=== PATIENT | female | born 1955 | race Caucasian/White ===

== ENCOUNTER 2021-11-20 10:51 | Inpatient (IN) | payer BC ==
[~2021-11-20] VITALS: Ht 170.2 cm; Wt 77.3 kg
[~2021-11-20 10:51] MED LIST: ATOR10TA87 PO; CYCL-1 PO; LISI20TA28 PO
[2021-11-20] MEDS ORDERED: acetaminophen 325mg tablet PO ONE (11:25)
[2021-11-20 12:14] LABS: BASOPHILS % (AUTO) 0.2 % (0-1); EOSINOPHILS % (AUTO) 0 % (0-6); HEMATOCRIT 44.9 % (35.0-45.0); HEMOGLOBIN 14.9 g/dl (12.0-16.0); LYMPHOCYTES # (AUTO) 0.7 X10'3 (1.1-4.8); LYMPHOCYTES % (AUTO) 6.7 % (21-51); MEAN CORPUSCULAR HEMOGLOBIN 28.9 PG (27.0-31.0); MEAN CORPUSCULAR HGB CONC 33.1 g/dL (33.0-36.5); MEAN CORPUSCULAR VOLUME 87.3 FL (78-98); MONOCYTES # (AUTO) 1.3 X10'3 (0-0.9); MONOCYTES % (AUTO) 11.9 % (2-12); NEUTROPHILS % (AUTO) 81.2 % (42-75); PLATELET COUNT 194 X10'3 (140-440); RED BLOOD COUNT 5.15 X10'6 (4.20-5.60); RED CELL DISTRIBUTION WIDTH 13.8 % (11.5-14.5); WHITE BLOOD COUNT 11.1 X10'3 (4.5-11.0)
[2021-11-20] MEDS ORDERED: normal saline 1000ml 1,000 ML IV ONE (12:40)
[2021-11-20 12:44] LABS: ALANINE AMINOTRANSFERASE 25 U/L (12-78); ALBUMIN/GLOBULIN RATIO 0.9 (1.1-1.5); ALKALINE PHOSPHATASE 97 IU/L (46-116); ANION GAP 11 (8-16); ASPARTATE AMINO TRANSFERASE 25 U/L (10-37); BILIRUBIN,TOTAL 0.5 MG/DL (0.1-1.0); BLOOD UREA NITROGEN 19 MG/DL (7-18); BUN/CREATININE RATIO 16.8 (6.6-38.0); CALCIUM 9.1 MG/DL (8.5-10.1); CHLORIDE 98 MMOL/L (99-107); CREATININE 1.13 MG/DL (0.40-0.90); GLUCOSE 127 MG/DL (70-104); POTASSIUM 4.5 MMOL/L (3.5-5.1); SODIUM 135 MMOL/L (135-145); TOTAL CARBON DIOXIDE 25.6 MMOL/L (24-32); TOTAL PROTEIN 8.5 G/DL (6.4-8.2); eGFR 48 ML/MIN
[2021-11-20] MEDS ORDERED: normal saline 1000ML IV soln IVB ONE (12:55)
[2021-11-20] MEDS ORDERED: iohexol 350MG/ML 100ml bottle IV ONE (13:21)
--- NOTE | 2021-11-20 13:27 | NUR ---
pt to ct with transport
[2021-11-20 15:47] LABS: C-REACTIVE PROTEIN 9.57 MG/DL (0.0-0.5); D-DIMER 1.34 MG/L FEU (0-0.50)
[2021-11-20] MEDS ORDERED: acetaminophen 325mg tablet PO PRN (17:15)
[2021-11-20] MEDS ORDERED: mag hydrox/Alum hydrox/simeth 30ml oral suspension PO PRN (17:15)
[2021-11-20] MEDS ORDERED: ondansetron/PF 4mg/2ml inj IV PRN (17:15)
[2021-11-20] MEDS ORDERED: magnesium hydroxide 30ml (MOM) UD suspension PO PRN (17:15)
[2021-11-20] MEDS ORDERED: levoFLOXACIN-Levaquin 750MG/D5 150 ML IV SCH (17:20)
[2021-11-20] MEDS: levoFLOXACIN-Levaquin 750MG/D5 150 ML IV SCH (17:54)
[2021-11-20 18:26] LABS: CLARITY,URINE CLEAR (Clear); COLOR,URINE YELLOW (Yellow); GLUCOSE, URINE NEGATIVE (Neg); KETONES,URINE 15 mg/dl (Neg); LEUKOCYTE ESTERASE ,URINE NEGATIVE (Neg); NITRITES, URINE NEGATIVE (Neg); OCCULT BLOOD,URINE MODERATE (Neg); PROTEIN,URINE TRACE mg/dl (Neg); UROBILINOGEN,URINE 0.2 E.U/dL (0.2-1.0)
[2021-11-20 18:27] LABS: UA COLLECTION TYPE CLN CATCH MIDSTREAM
[2021-11-20 18:41] LABS: WBC,URINE 0-4 /HPF (0-4)
[2021-11-20 18:42] LABS: BACTERIA,URINE NONE SEEN /HPF (Neg); MUCUS STRANDS MODERATE /LPF (Neg); SQUAMOUS EPITHELIAL CELL,UR FEW /LPF (FEW)
[2021-11-20] MEDS: docusate sod 100mg capsule PO SCH (19:25)
[2021-11-20] MEDS: predniSONE 20 mg tablet PO SCH (19:25)
[2021-11-20] MEDS: enoxaparin 30mg/0.3ml syringe SQ SCH (19:26)
[2021-11-20] MEDS: albuterol 2.5 MG/3 ML nebule NEB SCH ×2 (21:26→23:33)
--- NOTE | 2021-11-20 23:30 | NUR ---
Patient placed on hospital bed.
[2021-11-21] MEDS: albuterol 2.5 MG/3 ML nebule NEB SCH ×6 (03:12→23:31)
[2021-11-21 08:08] LABS: BASOPHILS % (AUTO) 0.1 % (0-1); EOSINOPHILS % (AUTO) 0 % (0-6); HEMATOCRIT 35.6 % (35.0-45.0); HEMOGLOBIN 12.1 g/dl (12.0-16.0); LYMPHOCYTES # (AUTO) 1.2 X10'3 (1.1-4.8); LYMPHOCYTES % (AUTO) 11.1 % (21-51); MEAN CORPUSCULAR HEMOGLOBIN 29.4 PG (27.0-31.0); MEAN CORPUSCULAR VOLUME 86.5 FL (78-98); MEAN PLATELET VOLUME 8.3 FL (7.4-10.4); MONOCYTES # (AUTO) 1.2 X10'3 (0-0.9); MONOCYTES % (AUTO) 11.9 % (2-12); NEUTROPHILS % (AUTO) 76.9 % (42-75); PLATELET COUNT 145 X10'3 (140-440); RED BLOOD COUNT 4.12 X10'6 (4.20-5.60); RED CELL DISTRIBUTION WIDTH 13.7 % (11.5-14.5); WHITE BLOOD COUNT 10.4 X10'3 (4.5-11.0)
[2021-11-21 08:36] LABS: ALBUMIN 2.9 G/DL (3.4-5.0); BLOOD UREA NITROGEN 18 MG/DL (7-18); BUN/CREATININE RATIO 20.7 (6.6-38.0); CHLORIDE 102 MMOL/L (99-107); CREATININE 0.87 MG/DL (0.40-0.90); GLUCOSE 120 MG/DL (70-104); POTASSIUM 3.9 MMOL/L (3.5-5.1); SODIUM 137 MMOL/L (135-145); eGFR 66 ML/MIN
[2021-11-21] MEDS: levoFLOXACIN-Levaquin 750MG/D5 150 ML IV SCH (08:53)
[2021-11-21] MEDS: predniSONE 20 mg tablet PO SCH (08:55)
[2021-11-21] MEDS: docusate sod 100mg capsule PO SCH ×2 (08:55→23:03)
[2021-11-21] MEDS: enoxaparin 30mg/0.3ml syringe SQ SCH ×2 (08:55→23:03)
[2021-11-21 09:06] LABS: ANION GAP 10 (8-16)
[2021-11-21] MEDS ORDERED: atorvastatin 10mg tablet PO SCH (21:00)
--- NOTE | 2021-11-21 21:12 | NUR ---
report off to INNA Shah
--- NOTE | 2021-11-21 23:09 | NUR ---
pt observed resting comfortably, denies needs , medicated per mar
--- NOTE | 2021-11-21 23:18 | NUR ---
attempted to give report to unit rn, retail inventory control clerk states the nurse will call back in a few minutes.
[2021-11-22 00:23] VITALS: BP 132/70
[2021-11-22 01:41] VITALS: BP 114/66
[2021-11-22] MEDS: albuterol 2.5 MG/3 ML nebule NEB SCH ×3 (03:02→12:00)
[2021-11-22 06:30] LABS: BASOPHILS % (AUTO) 0.3 % (0-1); EOSINOPHILS % (AUTO) 0.1 % (0-6); HEMATOCRIT 38.1 % (35.0-45.0); LYMPHOCYTES # (AUTO) 1.6 X10'3 (1.1-4.8); LYMPHOCYTES % (AUTO) 15.9 % (21-51); MEAN CORPUSCULAR HEMOGLOBIN 29.5 PG (27.0-31.0); MEAN CORPUSCULAR HGB CONC 34.1 g/dL (33.0-36.5); MEAN CORPUSCULAR VOLUME 86.5 FL (78-98); MEAN PLATELET VOLUME 8.4 FL (7.4-10.4); MONOCYTES % (AUTO) 9.8 % (2-12); NEUTROPHILS # (AUTO) 7.6 X10'3 (1.8-7.7); NEUTROPHILS % (AUTO) 73.9 % (42-75); PLATELET COUNT 179 X10'3 (140-440); RED CELL DISTRIBUTION WIDTH 13.7 % (11.5-14.5); WHITE BLOOD COUNT 10.2 X10'3 (4.5-11.0)
--- NOTE | 2021-11-22 06:35 | NUR ---
Problems reprioritized. Patient report given, questions answered & plan of care reviewed with Maria Isabel RN.
[2021-11-22 07:00] VITALS: BP 126/54
[2021-11-22 08:08] LABS: BLOOD UREA NITROGEN 14 MG/DL (7-18); BUN/CREATININE RATIO 19.4 (6.6-38.0); CALCIUM 8.7 MG/DL (8.5-10.1); CREATININE 0.72 MG/DL (0.40-0.90); GLUCOSE 101 MG/DL (70-104); eGFR 82 ML/MIN
[2021-11-22] MEDS ORDERED: PRED20TA PO (11:28)
[2021-11-22] MEDS ORDERED: LEVO500T90 PO (11:28)
--- NOTE | 2021-11-22 13:45 | NUR ---
discharged pt per orders. Pt educated on new medications and to follow up with primary care dr. Pt escorted out by this RN via wheelchair with all belongings. pt picked up out from by .
[2021-11-23 09:08] LABS: POTASSIUM 3.5 MMOL/L (3.3-5.1)
[2021-11-23 15:49] LABS: ANION GAP 8 (8-16); CHLORIDE 106 MMOL/L (99-107); POTASSIUM 3.5 MMOL/L (3.5-5.1); SODIUM 140 MMOL/L (135-145)
== END 2021-11-22 13:55 | disposition home or self-care (01) | DRG 871 ==
LOC: ER 10:52 → ED HOLD 17:18 → PCU 3S 11-21 23:38
PROVIDERS: ADMIT Family Medicine; ATTEND Family Medicine
PROC: B32T1ZZ Computerized Tomography (CT Scan) of Left Pulmonary Artery using Low Osmolar Contrast (ICD-10-PCS; principal; 2021-11-20)
PROC: B3201ZZ Computerized Tomography (CT Scan) of Thoracic Aorta using Low Osmolar Contrast (ICD-10-PCS; 2021-11-20)
PROC: B32S1ZZ Computerized Tomography (CT Scan) of Right Pulmonary Artery using Low Osmolar Contrast (ICD-10-PCS; 2021-11-20)
DX: A41.9 Sepsis, unspecified organism (principal); J18.9 Pneumonia, unspecified organism; J96.01 Acute respiratory failure with hypoxia; Z20.822 Contact with and (suspected) exposure to COVID-19; E78.00 Pure hypercholesterolemia, unspecified; E78.5 Hyperlipidemia, unspecified; I10 Essential (primary) hypertension; Z88.0 Allergy status to penicillin; Z79.899 Other long term (current) drug therapy
CPT/HCPCS: 36415; 71045; 71275; 80048; 80053; 81001; 83605; 84145; 85025; 85379; 86140; 87040; 87081; 87502; 87503; 87635; 94640; 94760; 99285; C9803; G0378; J1650; J1956; J7030; J7512; Q9967